=== PATIENT | female | born 1985 | race Caucasian/White ===

== ENCOUNTER 2017-04-10 15:56 | Emergency (ER) | payer OTHER ==
[~2017-04-10] VITALS: Ht 177.8 cm; Wt 68.0 kg
[~2017-04-10 15:56] MED LIST: HYDACE7.5 PO; PROM25 PO; Verotin-Gr Cap1 EACH PO
[2017-04-10 20:15] LABS: BASOPHILS ABSOLUTE AUTO 0.03 K/mm3 (0.00-0.23); BASOPHILS PERCENT AUTO 0 % (0-2); EOSINOPHILS ABSOLUTE AUTO 0.11 K/mm3 (0.00-0.68); EOSINOPHILS PERCENT AUTO 2 % (0-6); Hematocrit 23.6 % (33.0-51.0); Hemoglobin 7.7 g/dL (11.5-16.0); IMMATURE GRAN ABSOLUTE AUTO 0.02 K/mm3 (0.00-0.10); IMMATURE GRAN PERCENT AUTO 0 % (0-1); LYMPHOCYTES ABSOLUTE AUTO 1.62 K/mm3 (0.84-5.20); LYMPHOCYTES PERCENT AUTO 22 % (21-46); MONOCYTES ABSOLUTE AUTO 0.68 K/mm3 (0.16-1.47); MONOCYTES PERCENT AUTO 9 % (4-13); Mean Corpuscular HGB 29.8 pg (26.0-34.0); Mean Corpuscular HGB Conc 32.6 g/dL (31.5-36.5); Mean Corpuscular Volume 92 fL (80-100); Mean Platelet Volume 12.3 fL (9.1-12.4); NEUTROPHILS ABSOLUTE AUTO 4.87 K/mm3 (1.96-9.15); NEUTROPHILS PERCENT AUTO 66 % (41-73); Platelet Count 198 K/mm3 (150-400); RDW Coefficient Variation 13.2 % (11.7-14.2); RDW Standard Deviation 43.2 fL (35.1-46.3); Red Blood Cell Count 2.58 M/mm3 (3.80-5.20); White Blood Cell Count 7.33 K/mm3 (4.00-11.30)
[2017-04-10 21:49] LABS: Alanine Aminotransfer (ALT/SGP 8 U/L (12-78); Albumin, Blood 2.8 g/dL (3.4-5.0); Alk Phos 45 U/L (50-136); Anion Gap 10 mmol/L (6-16); Aspartate Aminotrans (AST/SGOT 9 U/L (12-37); Beta HCG, Quantitative, Serum 12 mIU/mL (0-3); Bilirubin, Total 0.1 mg/dL (0.1-1.0); Blood Urea Nitrogen 9 mg/dL (8-24); Bun/Creatinine Ratio 16.7 (12.0-20.0); CO2, Blood 20 mmol/L (21-32); Calcium, Blood 7.8 mg/dL (8.5-10.1); Chloride, Blood 111 mmol/L (98-108); Creatinine, Blood 0.54 mg/dL (0.40-1.00); Globulin, Blood 2.9 g/dL (2.2-4.0); Glomerular Filtration Rate >60 (60-); Glucose, Blood 78 mg/dL (70-99); Potassium, Blood 3.7 mmol/L (3.5-5.5); Sodium, Blood 141 mmol/L (136-145); Total Protein, Blood 5.7 g/dL (6.4-8.2)
[2017-07-26] MEDS ORDERED: Advil200 M1 PO (08:15)
== END 2017-04-10 23:00 | disposition home or self-care (01) ==
LOC: ER 15:56
PROVIDERS: Emergency Medicine
DX: D62 Acute posthemorrhagic anemia (principal); Z86.2 Personal history of diseases of the blood and blood-forming organs and certain disorders involving the immune mechanism; R53.83 Other fatigue
CPT/HCPCS: 36415; 76856; 80053; 84702; 85025; 86900; 86901; 87070; 87205; 87491; 87591; 87661; 99284

== ENCOUNTER 2017-04-13 12:37 | Day surgery (SDC) | payer OTHER ==
[2017-04-12 15:52] LABS: Hemoglobin 8.1 g/dL (11.5-16.0); Mean Corpuscular HGB 30.1 pg (26.0-34.0); Mean Corpuscular HGB Conc 33.8 g/dL (31.5-36.5); Mean Platelet Volume 11.7 fL (9.1-12.4); Platelet Count 220 K/mm3 (150-400); RDW Coefficient Variation 13.2 % (11.7-14.2); RDW Standard Deviation 42.1 fL (35.1-46.3); Red Blood Cell Count 2.69 M/mm3 (3.80-5.20); White Blood Cell Count 7.47 K/mm3 (4.00-11.30)
[2017-04-12 16:11] LABS: Mean Corpuscular Volume 89 fL (80-100)
[2017-04-12 16:21] LABS: Percent Saturation 3.5 % (15.0-50.0)
[~2017-04-13] VITALS: Ht 177.8 cm; Wt 65.8 kg
[2017-07-26] MEDS ORDERED: Advil200 M1 PO (08:15)
== END 2017-04-13 16:26 | disposition home or self-care (01) ==
LOC: ORSCMMR 12:37
PROVIDERS: Obstetrics & Gynecology
PROC: 10D17ZZ Extraction of Products of Conception, Retained, Via Natural or Artificial Opening (ICD-10-PCS; principal; 2017-04-13 14:30)
DX: O02.1 Missed abortion (principal); O03.39 Incomplete spontaneous abortion with other complications; D50.0 Iron deficiency anemia secondary to blood loss (chronic)
CPT/HCPCS: 36415; 82728; 83540; 83550; 84702; 85027; 86850; 86900; 86901; 88305; J0690; J1100; J1885; J2210; J2250; J2405; J2765; J7120

== ENCOUNTER 2017-08-03 08:25 | Day surgery (SDC) | payer OTHER ==
[~2017-08-03] VITALS: Wt 67.9 kg
[~2017-08-03 08:25] MED LIST changes: +Advil200 M1 PO
== END 2017-08-03 11:53 | disposition home or self-care (01) ==
LOC: ORSCSDS 08:25
PROVIDERS: Obstetrics & Gynecology
PROC: 0UT74ZZ Resection of Bilateral Fallopian Tubes, Percutaneous Endoscopic Approach (ICD-10-PCS; principal; 2017-08-03 09:45)
DX: Z30.2 Encounter for sterilization (principal); N80.3 Endometriosis of pelvic peritoneum; F17.210 Nicotine dependence, cigarettes, uncomplicated
CPT/HCPCS: 88302; J0171; J0690; J1100; J1885; J2250; J2405; J2710; J3010; J7120

== ENCOUNTER 2019-11-13 12:51 | Day surgery (SDC) | payer OTHER ==
[2019-11-11 17:39] LABS: BASOPHILS ABSOLUTE AUTO 0.04 K/mm3 (0.00-0.23); BASOPHILS PERCENT AUTO 1 % (0-2); EOSINOPHILS ABSOLUTE AUTO 0.11 K/mm3 (0.00-0.68); EOSINOPHILS PERCENT AUTO 1 % (0-6); Hematocrit 40.6 % (33.0-51.0); Hemoglobin 13.6 g/dL (11.5-16.0); IMMATURE GRAN ABSOLUTE AUTO 0.02 K/mm3 (0.00-0.10); IMMATURE GRAN PERCENT AUTO 0 % (0-1); LYMPHOCYTES ABSOLUTE AUTO 1.89 K/mm3 (0.84-5.20); LYMPHOCYTES PERCENT AUTO 22 % (21-46); MONOCYTES ABSOLUTE AUTO 0.72 K/mm3 (0.16-1.47); MONOCYTES PERCENT AUTO 8 % (4-13); Mean Corpuscular HGB Conc 33.5 g/dL (31.5-36.5); Mean Corpuscular Volume 89 fL (80-100); Mean Platelet Volume 11.8 fL (9.1-12.4); NEUTROPHILS ABSOLUTE AUTO 6.01 K/mm3 (1.96-9.15); NEUTROPHILS PERCENT AUTO 68 % (41-73); Platelet Count 270 K/mm3 (150-400); RDW Coefficient Variation 12.1 % (11.7-14.2); RDW Standard Deviation 39.3 fL (35.1-46.3); Red Blood Cell Count 4.54 M/mm3 (3.80-5.20); White Blood Cell Count 8.79 K/mm3 (4.00-11.30)
[~2019-11-13] VITALS: Ht 174 cm; Wt 85.9 kg
[~2019-11-13 12:51] MED LIST changes: -Advil200 M1 PO; +IBUP200 PO
--- NOTE | 2019-11-13 13:24 | NUR ---
Ambulatory in Day Surgery History, Chart, Medications and Allergies reviewed before start of procedure.Patient confirms NPO status and agrees with scheduled surgery. Patient reports completing Chlorhexadine shower X2 prior to admission to hospital.Surgical site prepped with 2% Chlorhexidine cloth wipe.
--- NOTE | 2019-11-13 18:35 | NUR ---
SHIFT SUMMARY PT A&OX4, VSS, S/P LAVH, 4 LAP SITES W/WOUND GLUE CDI, KPAD ON. PAIN MEDICATED WITH TORADOL AND 10MG PERCOCET. EDUARD PO REG DIET, DENIES N&V. CASTREJON PATENT & DRAINING YELLOW URINE, STAT LOCK ON, OFF FLOOR. IVF INFUSING IN LWRIST IV; IV IN RFA. WILL REPORT TO ONCOMING NOC EVANS.
[2019-11-14 04:35] LABS: BASOPHILS ABSOLUTE AUTO 0.01 K/mm3 (0.00-0.23); BASOPHILS PERCENT AUTO 0 % (0-2); EOSINOPHILS PERCENT AUTO 0 % (0-6); Hematocrit 37.6 % (33.0-51.0); Hemoglobin 12.4 g/dL (11.5-16.0); IMMATURE GRAN ABSOLUTE AUTO 0.08 K/mm3 (0.00-0.10); IMMATURE GRAN PERCENT AUTO 1 % (0-1); LYMPHOCYTES ABSOLUTE AUTO 0.86 K/mm3 (0.84-5.20); LYMPHOCYTES PERCENT AUTO 6 % (21-46); MONOCYTES ABSOLUTE AUTO 0.83 K/mm3 (0.16-1.47); MONOCYTES PERCENT AUTO 6 % (4-13); Mean Corpuscular Volume 91 fL (80-100); Mean Platelet Volume 11.7 fL (9.1-12.4); NEUTROPHILS PERCENT AUTO 88 % (41-73); Platelet Count 237 K/mm3 (150-400); RDW Coefficient Variation 12.2 % (11.7-14.2); RDW Standard Deviation 40.4 fL (35.1-46.3); Red Blood Cell Count 4.14 M/mm3 (3.80-5.20); White Blood Cell Count 14.98 K/mm3 (4.00-11.30)
--- NOTE | 2019-11-14 05:42 | NUR ---
PATIENT HAD AN UNEVENTFUL NIGHT, SHE SLEPT FOR A FEW HOURS AT A TIME. 2 PERCOCET FOR PAIN EVERY 5-6 HOURS. 4 LAP SITES WITHOUT BLEEDING. CASTREJON CATH REMOVED THIS AM WITHOUT ISSUE. SCANT VAGINAL BLEEDING, ONE PAD CHANGED. PATIENT WAS ABLE TO VOID AFTER CATH REMOVAL. UP IN THE ROOM TO BR AND CHAIR WITHOUT DIFFICULTY. CALL LIGHT IN REACH.
[2019-11-14] MEDS ORDERED: DOCU100 PO (13:43)
[2019-11-14] MEDS ORDERED: IBUP400 PO (13:43)
[2019-11-14] MEDS ORDERED: Estradiol2 MG PO (13:44)
[2019-11-14] MEDS ORDERED: Milk Of Ma400 MG/5 M PO (13:45)
[2019-11-14] MEDS ORDERED: Percocet 5-3251 EACH PO (13:46)
[2019-11-14] MEDS ORDERED: PROM25 PO (13:47)
[2019-11-14] MEDS ORDERED: TRANSDERM-SCOP1 EAC1 TD (13:48)
[2019-11-14] MEDS ORDERED: SENN187 PO (13:49)
[2019-11-14] MEDS ORDERED: SIME80CH PO (13:49)
--- NOTE | 2019-11-14 14:04 | NUR ---
DISCHARGE DISCHARGE INSTRUCTIONS REVIEWED AND PATIENT VERBALIZES UNDERSTANDING OF. PTS PAIN CONTROLLED WITH PO MEDS. PT VOIDING, AMBULATING IN ROOM WITHOUT ASSIST. SCANT BLOODY VAGINAL DRAINAGE ON ROSANGELA PAD. PT DISCHARGED TO HOME WITH HER MOTHER
== END 2019-11-14 14:08 | disposition home or self-care (01) ==
LOC: ORSCMMR 12:51 → ORD 14:30 → SURS 16:17 → ORSCMMR 11-14 14:08
PROVIDERS: Obstetrics & Gynecology
PROC: 0UT24ZZ Resection of Bilateral Ovaries, Percutaneous Endoscopic Approach (ICD-10-PCS; principal; 2019-11-13 14:30)
PROC: 0UT94ZZ Resection of Uterus, Percutaneous Endoscopic Approach (ICD-10-PCS; principal; 2019-11-13 14:30)
PROC: 0UT74ZZ Resection of Bilateral Fallopian Tubes, Percutaneous Endoscopic Approach (ICD-10-PCS; principal; 2019-11-13 14:30)
PROC: 8E0W7CZ Robotic Assisted Procedure of Trunk Region, Via Natural or Artificial Opening (ICD-10-PCS; principal; 2019-11-13 14:30)
DX: N92.0 Excessive and frequent menstruation with regular cycle (principal); N94.10 Unspecified dyspareunia; R10.2 Pelvic and perineal pain; N83.12 Corpus luteum cyst of left ovary; N83.11 Corpus luteum cyst of right ovary; Z87.891 Personal history of nicotine dependence
CPT/HCPCS: 58571; S2900; 36415; 84702; 85025; 86850; 86900; 86901; 88307; A9270; J0461; J0690; J1100; J1885; J2250; J2405; J2704; J2710; J3010; J7120

== ENCOUNTER → 2019-12-24 | Outpatient (CLI) | payer OTHER ==
[~2019-12-24] MED LIST changes: +DOCU100 PO; +Estradiol2 MG PO; +IBUP400 PO; +Milk Of Ma400 MG/5 M PO; +Percocet 5-3251 EACH PO; +SENN187 PO; +SIME80CH PO; +TRANSDERM-SCOP1 EAC1 TD
[2019-12-26 15:20] LABS: CORONAVIRUS (COVID19) CSH-NRL Negative (Negative)
== END ==
LOC: LAB SHORT 13:41 → LAB 13:41
PROVIDERS: Physician Assistant Medical
DX: Z20.828 Contact with and (suspected) exposure to other viral communicable diseases (principal)
CPT/HCPCS: U0003

== ENCOUNTER 2022-08-14 10:15 | Emergency (ER) | payer OTHER ==
[~2022-08-14] VITALS: Ht 177.8 cm; Wt 90.7 kg
[~2022-08-14 10:15] MED LIST changes: +CEFP200 PO; +Pyridium100 MG PO; +Pyridium200 MG PO
[2022-08-14 15:08] LABS: Albumin, Blood 3.5 g/dL (3.4-5.0); Albumin/Globulin Ratio 0.9 (0.8-1.8); Bilirubin, Total 0.4 mg/dL (0.1-1.0); Bun/Creatinine Ratio 16.5 (12.0-20.0); Calcium, Blood 9.1 mg/dL (8.5-10.1); Creatinine, Blood 0.79 mg/dL (0.40-1.00); Globulin, Blood 3.8 g/dL (2.2-4.0); Potassium, Blood 3.8 mmol/L (3.5-5.5); Total Protein, Blood 7.3 g/dL (6.4-8.2)
[2022-08-14 15:17] LABS: BASOPHILS ABSOLUTE AUTO 0.03 K/mm3 (0.00-0.23); BASOPHILS PERCENT AUTO 0 % (0-2); EOSINOPHILS ABSOLUTE AUTO 0.32 K/mm3 (0.00-0.68); EOSINOPHILS PERCENT AUTO 4 % (0-6); Hematocrit 40.5 % (33.0-51.0); Hemoglobin 13.7 g/dL (11.5-16.0); IMMATURE GRAN ABSOLUTE AUTO 0.02 K/mm3 (0.00-0.10); IMMATURE GRAN PERCENT AUTO 0 % (0-1); LYMPHOCYTES ABSOLUTE AUTO 2.51 K/mm3 (0.84-5.20); LYMPHOCYTES PERCENT AUTO 29 % (21-46); MONOCYTES ABSOLUTE AUTO 0.74 K/mm3 (0.16-1.47); MONOCYTES PERCENT AUTO 8 % (4-13); Mean Corpuscular HGB 30.4 pg (26.0-34.0); Mean Corpuscular HGB Conc 33.8 g/dL (31.5-36.5); Mean Corpuscular Volume 90 fL (80-100); Mean Platelet Volume 11.3 fL (9.1-12.4); NEUTROPHILS PERCENT AUTO 59 % (41-73); Platelet Count 280 K/mm3 (150-400); RDW Coefficient Variation 12.9 % (11.7-14.2); RDW Standard Deviation 42.4 fL (35.1-46.3); White Blood Cell Count 8.82 K/mm3 (4.00-11.30)
[2022-08-14] MEDS ORDERED: TIZA4 PO (16:53)
[2022-08-14 17:00] VITALS: BP 100/69
== END 2022-08-14 17:20 | disposition home or self-care (01) ==
LOC: ER 10:15
PROVIDERS: Emergency Medicine
DX: M54.12 Radiculopathy, cervical region (principal); D64.9 Anemia, unspecified; F17.200 Nicotine dependence, unspecified, uncomplicated
CPT/HCPCS: 72125; 80053; 83735; 84703; 85025; 96374; 96375; 99284-25; A9270; J1885; J3360